=== PATIENT | female | born 1975 | race Native Hawaiian/Other Pacific Islander ===

== ENCOUNTER 2018-11-10 18:13 | Emergency (ER) | payer OTHER ==
[2018-11-10 19:38] VITALS: RESP 18
[2018-11-10] MEDS ORDERED: DOXYCYCLINE 100 MG CAP PO STA (19:57)
--- NOTE | 2018-11-10 20:04 | ED ---
General Adult HPI - General Chief complaint: Skin/Abscess/Foreign Body Stated complaint: Tick bite, thinks lyme disease Time Seen by Provider: 11/10/18 19:48 Source: patient, RN notes reviewed, old records reviewed Mode of arrival: ambulatory Limitations: no limitations - History of Present Illness Initial comments: 43-year-old female patient presents to ED for evaluation of left lower extremity. Patient reports that she had a tick on her see her calf on Sunday. Patient reports that she noticed the tick around 9 PM. Patient states that she did shower that morning so she knows that she the tick was attached <24 hours, likely <12 hours. Pt did state that the tick was engorged but was able to be easily removed. Patient reports that he has a small amount of bruising around with the tick was engorged and wants that to be evaluated. Patient states that she is also on her menses right now and has had some mild fatigue and nausea which are still typical symptoms for her due to tick bite wanted to be evaluated to make sure that it is not Lyme disease. Denies all other complaints. Systemic: Pt denies fatigue, fever/chills. Pt denies weakness, night sweats, weight loss. Neuro: Pt denies headache, visual disturbances, syncope or pre-syncope. HEENT: Pt denies ocular discharge or irritation, otalgia, rhinorrhea, pharyngitis or notable lymphadenopathy. Cardiopulmonary: Pt denies chest pain, SOB, heart palpitations, dyspnea on exertion. Abdominal/GI: Pt denies abdominal pain, n/v/d. : Pt denies dysuria, burning w/ urination, frequency/urgency. Denies new onset urinary or bowel incontinence. MSK: Pt denies myalgia, loss of strength or function in extremities. Neuro: Pt denies new onset weakness, paresthesias. - Related Data Allergies Allergy/AdvReac Type Severity Reaction Status Date / Time No Known Allergies Allergy Verified 11/10/18 19:38 Review of Systems ROS Statement: Those systems with pertinent positive or pertinent negative responses have been documented in the HPI. ROS Other: All systems not noted in ROS Statement are negative. Past Medical History Past Medical History: No Reported History History of Any Multi-Drug Resistant Organisms: None Reported Past Surgical History: No Surgical Hx Reported Past Psychological History: No Psychological Hx Reported Smoking Status: Never smoker Past Alcohol Use History: None Reported Past Drug Use History: Unable to Obtain General Exam - General Exam Comments Initial Comments: Constitutional: NAD, AOX3, Pt has pleasant affect. HEENT: NC/AT, trachea midline, neck supple, no lymphadenopathy. Posterior pharynx non erythematous, without exudates. External ears appear normal, without discharge. Mucous membranes moist. Eyes PERRLA, EOM intact. There is no scleral icterus. No pallor noted. Cardiopulmonary: RRR, no murmurs, rubs or gallops, no JVD noted. Lungs CTAB in anterior and posterior kimble. No peripheral edema. Abdominal exam: Abdomen soft and non-distended. Abdomen non-tender to palpation in all 4 quadrants. Bowel sounds active in LLQ. No hepatosplenomegaly. No ecchymosis Neuro: CN II-XII grossly intact. No nuchal rigidity. No raccon eyes, no lowry sign, no hemotympanum. No cervical spinal tenderness. MSK: Small amount of ecchymoses around region of tick bite in left posterior calf region. <3cm. No erythema, no central clearing rash. No posterior calf tenderness bilaterally, homans sign negative bilaterally. Posterior tibialis and radial pulse +2 bilaterally. Sensation intact in upper and lower extremities. Full active ROM in upper and lower extremities, 5/5 stregnth. Limitations: no limitations Course Vital Signs 11/10/18 19:35 Temperature 98.4 F Pulse Rate 68 Respiratory 18 Rate Blood Pressure 117/80 O2 Sat by Pulse 98 Oximetry Medical Decision Making - Medical Decision Making 43-year-old female patient presents to ED for evaluation of left lower extremity. Patient reports that she had a tick on her see her calf on Sunday. Patient reports that she noticed the tick around 9 PM. Patient states that she did shower that morning so she knows that she the tick was attached <24 hours, likely <12 hours. Pt did state that the tick was engorged but was able to be easily removed. Patient reports that he has a small amount of bruising around with the tick was engorged and wants that to be evaluated. Patient states that she is also on her menses right now and has had some mild fatigue and nausea which are still typical symptoms for her due to tick bite wanted to be evaluated to make sure that it is not Lyme disease. Denies all other complaints. Pt VSS, afebrile. Physical exam displayed: Small amount of ecchymoses around region of tick bite in left posterior calf region. <3cm. No erythema, no central clearing rash. Reassured patient that lyme disease is extremely unlikely due to time that tick was attached and lack of rash. Pt verbalized understanding. Patient does request doxycycline prophylaxis. Patient states that she cannot be due to ligation ALLERGIES: Her menses. Patient discharged, will follow up with primary care provider tomorrow. Patient states that she'll continue to monitor rash at home. Case discussed Dr. Curry. Disposition Clinical Impression: Tick bite Disposition: HOME SELF-CARE Condition: Stable Instructions (If sedation given, give patient instructions): Tick Bite (ED) Additional Instructions: Patient to adhere to previously discussed treatment plan and will take medication(s) as directed. Patient to follow up with PCP in 1-2 days. Patient to return to ED if symptoms do not improve. Follow-up with primary care provider in 1-2 days. Continue to monitor for rash. Return to ER if condition worsens. Is patient prescribed a controlled substance at d/c from ED?: No Referrals: None,Stated [Primary Care Provider] - 1-2 days [facility] [NON[facility]STAFF] - 1-2 days
[2018-11-10 20:51] VITALS: BP 106/75; PULSE 71; TEMP 98.7
== END 2018-11-10 20:51 | disposition home or self-care (01) ==
LOC: EC 18:13
DX: S80.862A Insect bite (nonvenomous), left lower leg, initial encounter (principal); R53.83 Other fatigue; R11.0 Nausea; W57.XXXA Bitten or stung by nonvenomous insect and other nonvenomous arthropods, initial encounter
CPT/HCPCS: 99282